=== PATIENT | male | born 1980 | race Caucasian/White ===

== ENCOUNTER 2020-08-14 10:46 | Emergency (ER) | payer SELFPAY ==
--- NOTE | 2020-08-14 11:14 | ER Document Report ---
ED Medical Screen (RME) - General Chief Complaint: Hand Swelling Stated Complaint: HAND SWELLING/PAIN Time Seen by Provider: 08/14/20 11:04 Mode of Arrival: Ambulatory Information source: Patient Notes: 39-year-old male presents to ED for complaint of right hand and wrist pain and swelling. He states woke up yesterday with his hand and wrist swollen. He states it is progressed since then till now he cannot move his thumb or his wrist. He states he does not know of any injuries any cuts any infections he just is gradually swollen until now he cannot move the wrist or thumb and this is his right hand. I have greeted and performed a rapid initial assessment of this patient. A comprehensive ED assessment and evaluation of the patient, analysis of test results and completion of medical decision making process will be conducted by an additional ED providers. TRAVEL OUTSIDE OF THE [place] IN LAST 30 DAYS: No - Related Data Allergies/Adverse Reactions: No Known Allergies Allergy (Verified 08/14/20 11:04) Past Medical History - Social History Frequency of alcohol use: Occasional Drug Abuse: None Past Surgical History: Reports: Hx Tonsillectomy Physical Exam - Vital signs Vitals: Temp Pulse Resp BP Pulse Ox 98.0 F 75 16 136/101 H 100 08/14/20 10:58 08/14/20 10:58 08/14/20 10:58 08/14/20 10:58 08/14/20 10:58 Course - Vital Signs Vital signs: Temp Pulse Resp BP Pulse Ox 98.0 F 75 16 136/101 H 100 08/14/20 10:58 08/14/20 10:58 08/14/20 10:58 08/14/20 10:58 08/14/20 10:58
[2020-08-14 11:34] LABS: ABSOLUTE BASOPHILS # (AUTO) 0.1 10^3/uL (0.0-0.2); ABSOLUTE EOSINOPHILS # (AUTO) 0.3 10^3/uL (0.0-0.6); ABSOLUTE LYMPHOCYTES (AUTO) 3.3 10^3/uL (0.5-4.7); ABSOLUTE MONOCYTES (AUTO) 0.9 10^3/uL (0.1-1.4); ABSOLUTE NEUT (AUTO) 7.6 10^3/uL (1.7-8.2); BASOPHILS % (AUTO) 0.7 % (0-2); EOSINOPHILS % (AUTO) 2.6 % (0-6); HEMATOCRIT 43.7 % (37.9-51.0); LYMPHOCYTES % (AUTO) 26.7 % (13-45); MEAN CORPUSCULAR HEMOGLOBIN 30.8 pg (27.0-33.4); MEAN CORPUSCULAR HGB CONC 34.4 g/dL (32.0-36.0); MEAN CORPUSCULAR VOLUME 90 fl (80-97); MONOCYTES % (AUTO) 7.6 % (3-13); PLATELET COUNT 253 10^3/uL (150-450); RED BLOOD COUNT 4.89 10^6/uL (4.35-5.55); RED CELL DISTRIBUTION WIDTH 12.6 % (11.5-14.0); SEGMENTED NEUTROPHILS % (AUTO) 62.4 % (42-78); TOTAL CELLS COUNTED % (AUTO) 100 %; WHITE BLOOD COUNT 12.2 10^3/uL (4.0-10.5)
--- NOTE | 2020-08-14 11:46 | RADIOLOGY REPORT (SQ) ---
EXAM DESCRIPTION: HAND RIGHT 3 VIEWS IMAGES COMPLETED DATE/TIME: 08/14/2020 11:21 am REASON FOR STUDY: Pain swelling no known injuries decreased rom COMPARISON: None. EXAM PARAMETERS: NUMBER OF VIEWS: Three views. TECHNIQUE: AP, lateral and oblique radiographic images acquired of the right hand. LIMITATIONS: None. FINDINGS: MINERALIZATION: Normal. BONES: No acute fracture or dislocation. No worrisome bone lesions. No significant osteophytes. JOINTS: No erosions. No rafi-articular osteopenia. No chondrocalcinosis. SOFT TISSUES: No swelling. No calcifications. OTHER: No other significant finding. IMPRESSION: NEGATIVE STUDY OF THE RIGHT HAND. NO EXPLANATION FOR PAIN. TECHNICAL DOCUMENTATION: JOB ID: [id number] 2010 [employer]- All Rights Reserved Reading location - IP/workstation name: [email or web address]
--- NOTE | 2020-08-14 11:47 | RADIOLOGY REPORT (SQ) ---
EXAM DESCRIPTION: WRIST RIGHT 3 VIEWS IMAGES COMPLETED DATE/TIME: 08/14/2020 11:21 am REASON FOR STUDY: Pain swelling no known injuries decreased rom COMPARISON: None. NUMBER OF VIEWS: Three views. TECHNIQUE: AP, lateral, and oblique radiographic images acquired of the right wrist. LIMITATIONS: None. FINDINGS: MINERALIZATION: Normal. BONES: Small bony fragment adjacent to the trapezoid/trapezium. Question degenerative versus old tra ning. SOFT TISSUES: No soft tissue swelling. No foreign body. OTHER: No other significant finding. IMPRESSION: Small bony fragment in relation to the trapezoid/ trapezii. Question old trauma versus degenerative change. TECHNICAL DOCUMENTATION: JOB ID: [id number] 2010 [employer]- All Rights Reserved Reading location - IP/workstation name: [email or web address]
[2020-08-14 11:52] LABS: ALBUMIN 4.3 g/dL (3.5-5.0); ALKALINE PHOSPHATASE 106 U/L (38-126); ANION GAP 8 (5-19); ASPARTATE AMINO TRANSFERASE 24 U/L (17-59); BILIRUBIN,DIRECT 0.3 mg/dL (0.0-0.4); BILIRUBIN,TOTAL 0.3 mg/dL (0.2-1.3); BLOOD UREA NITROGEN 8 mg/dL (7-20); CALCIUM 9.4 mg/dL (8.4-10.2); CARBON DIOXIDE 27 mmol/L (22-30); CHLORIDE 106 mmol/L (98-107); GLUCOSE 117 mg/dL (75-110); TOTAL PROTEIN 6.8 g/dL (6.3-8.2)
--- NOTE | 2020-08-14 13:46 | ER Document Report ---
ED Hand/Wrist Injury - General Chief Complaint: Hand Swelling Stated Complaint: HAND SWELLING/PAIN Time Seen by Provider: 08/14/20 11:04 Mode of Arrival: Ambulatory Notes: HPI: 39-year-old male who presents today stating some atraumatic right thumb pain starting 1 4 days ago. Patient is a roadway engineer. He denies any trauma to the hand, bites, scratches, fever, or vomiting. He denies any pain to the wrist or fevers. He denies any real aggravating relieving factors other than worse with movement of the hand and thumb. ROS: See HPI Reviewed vital signs and nursing note as charted by RN. PHYSICAL EXAM: CONSTITUTIONAL: Alert and oriented and responds appropriately to questions. Well-appearing; well-nourished HEAD: Normocephalic; atraumatic EXT: Patient has some minimal swelling to the base and dorsal aspect of the thumb in the webspace region. No fluctuance, erythema, or induration. No swelling or tenderness to the palm. Full range of motion without tenderness to the wrist. Excellent range of motion of the fingers. Good capillary refill, sensation, and pulses to the wrist TRAVEL OUTSIDE OF THE [place] IN LAST 30 DAYS: No - Related Data Allergies/Adverse Reactions: No Known Allergies Allergy (Verified 08/14/20 11:04) Past Medical History - General Information source: Patient - Social History Smoking Status: Current Every Day Smoker Frequency of alcohol use: Occasional Drug Abuse: None Family History: DM, Other - aunt with sciatica cancer Past Surgical History: Reports: Hx Tonsillectomy Physical Exam - Vital signs Vitals: Temp Pulse Resp BP Pulse Ox 98.0 F 75 16 136/101 H 100 08/14/20 10:58 08/14/20 10:58 08/14/20 10:58 08/14/20 10:58 08/14/20 10:58 Course - Re-evaluation Re-evalutation: Given the above history and physical examination we will perform an x-ray of the right hand/wrist. I am unsure why laboratory values were ordered. Patient has no signs of infection. No erythema, fluctuance, or induration. 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 08/14/20 13:44 Examination as recorded. No change in exam. I will place the patient in a Velcro wrist splint with strict return precautions and follow-up with orthopedics. Patient understands the return precautions including redness, more swelling, or fever. - Vital Signs Vital signs: Temp Pulse Resp BP Pulse Ox 98.0 F 75 16 136/101 H 100 08/14/20 10:58 08/14/20 10:58 08/14/20 10:58 08/14/20 10:58 08/14/20 10:58 - Laboratory Result Diagrams: 08/14/20 11:23 08/14/20 11:23 Laboratory results interpreted by me: 08/14/20 08/14/20 11:23 11:23 WBC 12.2 H Glucose 117 H ALT 55 H Discharge - Discharge Clinical Impression: Right hand pain Condition: Good Disposition: HOME, SELF-CARE Additional Instructions: Come back immediately for any increased pain, swelling, extension of the swelling, redness, fever, vomiting, or any other acute problems. Please make sure that you take 600 milligrams of ibuprofen every 6 hours as well as the pain medications as needed that we have prescribed. Please follow-up with orthopedic s. Prescriptions: Hydrocodone/Acetaminophen [[place] 5-325 mg Tablet] 1 tab PO Q8 #10 tablet Referrals: NIMA CAIN MD [ACTIVE STAFF] - Follow up as needed
[2020-08-14 14:46] VITALS: BP 129/92
== END 2020-08-14 14:46 | disposition home or self-care (01) ==
LOC: ER 10:46
DX: M79.641 Pain in right hand (principal); R22.31 Localized swelling, mass and lump, right upper limb; F17.200 Nicotine dependence, unspecified, uncomplicated
CPT/HCPCS: 36415; 80053; 85025; 99284